=== PATIENT | female | born 1980 | race Caucasian/White ===

== ENCOUNTER 2016-09-30 16:25 | Inpatient (IN) | payer OTHER ==
[2016-09-30 18:17] LABS: Basophils # (A) 0.1 k/uL (0-0.2); Basophils % (A) 1 %; CH 26.9; CHCM 32.2; Eosinophils # (A) 0.3 k/uL (0-0.7); Eosinophils % (A) 3 %; HCT 43.2 % (34.0-46.0); HDW 2.84; HGB 13.7 gm/dL (11.4-16.0); Luc # (Auto) 0.27; Luc % (Auto) 3; Lymphocytes # (A) 2.7 k/uL (1.0-4.8); Lymphocytes % (A) 32 %; MCH 26.6 pg (25.0-35.0); MCHC 31.6 g/dL (31.0-37.0); MCV 84.2 fL (80.0-100.0); Monocytes # (A) 0.4 k/uL (0-1.0); Monocytes % (A) 5 %; Neutrophils # (A) 4.7 k/uL (1.3-7.7); Neutrophils % (A) 56 %; RBC 5.13 m/uL (3.80-5.40); RDW 14.2 % (11.5-15.5); WBC 8.5 k/uL (3.8-10.6)
[2016-09-30 18:19] LABS: Appearance,Urine Clear (Clear); Bacteria,Urine Rare /hpf; Bilirubin,Urine Negative (Negative); Glucose,Urine (UA) Negative (Negative); Ketones,Urine Negative (Negative); Leukocyte Esterase,Urine Small (Negative); Mucus,Urine Rare /hpf; Nitrite,Urine Negative (Negative); Particle Count 1566; Protein,Urine Negative (Negative); RBC,Urine 1 /hpf (0-5); Squamous Epithelial Cell,Urine 1 /hpf (0-4); UA Billing (MACRO vs. MICRO) MICRO; Urobilinogen,Urine <2.0 mg/dL (<2.0); WBC,Urine 5 /hpf (0-5)
[2016-09-30 18:27] LABS: ALT 41 U/L (9-52); AST 24 U/L (14-36); Alkaline Phosphatase 72 U/L (38-126); Anion Gap 10 mmol/L; Blood Urea Nitrogen 15 mg/dL (7-17); Calcium 9.3 mg/dL (8.4-10.2); Carbon Dioxide 25 mmol/L (22-30); Chloride 107 mmol/L (98-107); Glucose 112 mg/dL (74-99); Non-African American GFR(MDRD) >60 (>60 ml/min/1.73 sqM); Potassium 4.1 mmol/L (3.5-5.1); Sodium 142 mmol/L (137-145); Total Bilirubin 0.4 mg/dL (0.2-1.3); Total Protein 7.3 g/dL (6.3-8.2)
--- NOTE | 2016-09-30 18:47 | CT ---
EXAMINATION TYPE: CT thor lumbar spine wo con DATE OF EXAM: 09/30/2016 6:40 PM COMPARISON: NONE HISTORY: Lower body and leg numbness CT DLP: 1898.5 mGycm Automated exposure control for dose reduction was used. CT scan of the thoracic and lumbar spine are performed without contrast. FINDINGS: The thoracolumbar spine shows satisfactory alignment without evidence of acute fracture or dislocatio n. Vertebral body heights are fairly well-maintained. There is prominent posterior rim calcified disc herniation effacing anterior thecal sac at L3-L4 level on sagittal image 30. There is prominent ante rior spurring from T8 through T10 levels. There is additional right lateral spurring below this on co sohan images. Well-corticated defect possible old avulsion fracture or limbus vertebra L4 anterior arriaga perior vertebral body level is noted. Small posterior disc herniations are noted L4-L5 and L5-S1 leve ls. Review of axial images confirms most prominent spinal canal effacement due to posterior disc herniati on L3-L4 level on axial image 77. There is mild facet arthropathy bilaterally at this level. Axial images at L4-L5 level show mild to moderate facet degenerative changes bilaterally with central disc protrusion. Axial images at L5-S1 level show mild/moderate facet degenerative changes bilaterally. Liver is diffusely low dense consistent with fatty infiltration. IMPRESSION: MULTILEVEL DEGENERATIVE CHANGES IN THE THORACOLUMBAR SPINE MOST PROMINENT L3-L4 LEVEL DETAILED ABO VE. CONSIDER NONEMERGENT MRI CORRELATION.
--- NOTE | 2016-09-30 18:55 | ED ---
General Adult HPI - General Chief complaint: Extremity Problem,Nontraumatic Stated complaint: Numbness/Lower extremities Time Seen by Provider: 09/30/16 17:24 Source: patient Mode of arrival: ambulatory - History of Present Illness Initial comments: 35-year-old female presents with some numbness from the upper abdomen down to the knees. His been going on for 2 days no associated weakness no difficulty walking no loss of bowel or bladder control has not had any episodes like this before no history of MS. Has had some dyspnea problems minor in the past. No loss of vision no double vision. No serious health problems except for mild diabetes for which she is on metformin but her last A1c was in the findings. - Related Data Home Medications Medication Instructions Recorded Confirmed Levothyroxine Sodium [Synthroid] 100 mcg PO QAM 08/24/16 09/30/16 Levothyroxine Sodium [Synthroid] 125 mcg PO QAM 08/24/16 09/30/16 Pantoprazole Sodium [Protonix] 40 mg PO QAM 08/24/16 09/30/16 metFORMIN HCL ER [Glucophage Xr] 500 mg PO PC-BRKFST 08/24/16 09/30/16 L.acidoph,Paracasei, B.lactis 1 cap PO DAILY 09/30/16 09/30/16 [Probiotic] Multivitamins, Thera [Multivitamin] 1 tab PO DAILY 09/30/16 09/30/16 Sucralfate [Carafate] 1 gm PO BID 09/30/16 09/30/16 Vitamin B Complex Oral Drops 7 - 8 drop SL DAILY 09/30/16 09/30/16 Allergies Allergy/AdvReac Type Severity Reaction Status Date / Time No Known Allergies Allergy Verified 09/30/16 17:50 Review of Systems ROS Statement: Those systems with pertinent positive or pertinent negative responses have been documented in the HPI. ROS Other: All systems not noted in ROS Statement are negative. Constitutional: Denies: fever, chills ENT: Denies: ear pain, throat pain Respiratory: Denies: cough Cardiovascular: Denies: chest pain Gastrointestinal: Denies: abdominal pain, nausea, vomiting Genitourinary: Denies: urgency, frequency Skin: Denies: rash Neurological: Reports: paresthesias. Denies: headache Psychiatric: Denies: anxiety, depression Hematological/Lymphatic: Denies: easy bleeding, easy bruising Past Medical History Past Medical History: Diabetes Mellitus, GERD/Reflux, Liver Disease, Sleep Apnea /CPAP/BIPAP, Thyroid Disorder Additional Past Medical History / Comment(s): Uses CPAP.Hx Sarcoidosis with "swollen lymphnodes to lungs" & causes swelling to legs, reports minimal symptoms. History of Any Multi-Drug Resistant Organisms: None Reported Past Surgical History: Cholecystectomy, Tonsillectomy, Tubal Ligation Past Anesthesia/Blood Transfusion Reactions: No Reported Reaction Past Psychological History: No Psychological Hx Reported Smoking Status: Never smoker Past Alcohol Use History: None Reported Past Drug Use History: None Reported - Past Family History Mother Family Medical History: No Reported History General Exam Limitations: no limitations General appearance: alert Head exam: Present: atraumatic Eye exam: Present: normal appearance, PERRL, EOMI ENT exam: Present: normal oropharynx, mucous membranes moist Respiratory exam: Present: normal lung sounds bilaterally Cardiovascular Exam: Present: regular rate, normal heart sounds GI/Abdominal exam: Present: soft. Absent: tenderness External exam: Present: normal external exam Neurological exam: Present: alert, CN II-XII intact Psychiatric exam: Present: normal affect Skin exam: Present: warm, dry Course Vital Signs 09/30/16 09/30/16 17:07 19:20 Temperature 97.8 F Pulse Rate 74 69 Respiratory 18 18 Rate Blood Pressure 123/87 136/73 O2 Sat by Pulse 98 97 Oximetry Medical Decision Making - Medical Decision Making Spoke with Dr. Pastrana onset of paresthesias suggests of transverse myelitis versus MS advised to admit MRIs in the morning neuro checks and will be admitted to Dr. Molina spoke to his nurse practitioner. - Lab Data Result diagrams: 09/30/16 18:00 09/30/16 18:00 Lab Results 09/30/16 09/30/16 09/30/16 Range/Units 18:00 18:00 18:00 WBC 8.5 (3.8-10.6) k/uL RBC 5.13 (3.80-5.40) m/uL Hgb 13.7 (11.4-16.0) gm/dL Hct 43.2 (34.0-46.0) % MCV 84.2 (80.0-100.0) fL MCH 26.6 (25.0-35.0) pg MCHC 31.6 (31.0-37.0) g/dL RDW 14.2 (11.5-15.5) % Plt Count 237 (150-450) k/uL Neutrophils % 56 % Lymphocytes % 32 % Monocytes % 5 % Eosinophils % 3 % Basophils % 1 % Neutrophils # 4.7 (1.3-7.7) k/uL Lymphocytes # 2.7 (1.0-4.8) k/uL Monocytes # 0.4 (0-1.0) k/uL Eosinophils # 0.3 (0-0.7) k/uL Basophils # 0.1 (0-0.2) k/uL Sodium 142 (137-145) mmol/L Potassium 4.1 (3.5-5.1) mmol/L Chloride 107 (98-107) mmol/L Carbon Dioxide 25 (22-30) mmol/L Anion Gap 10 mmol/L BUN 15 (7-17) mg/dL Creatinine 0.68 (0.52-1.04) mg/dL Est GFR (MDRD) Af Amer >60 (>60 ml/min/1.73 sqM) Est GFR (MDRD) Non-Af >60 (>60 ml/min/1.73 sqM) Glucose 112 H (74-99) mg/dL Calcium 9.3 (8.4-10.2) mg/dL Total Bilirubin 0.4 (0.2-1.3) mg/dL AST 24 (14-36) U/L ALT 41 (9-52) U/L Alkaline Phosphatase 72 (38-126) U/L Total Protein 7.3 (6.3-8.2) g/dL Albumin 4.1 (3.5-5.0) g/dL Urine Color Yellow Urine Appearance Clear (Clear) Urine pH 6.0 (5.0-8.0) Ur Specific [place] 1.020 (1.001-1.035) Urine Protein Negative (Negative) Urine Glucose (UA) Negative (Negative) Urine Ketones Negative (Negative) Urine Blood Negative (Negative) Urine Nitrate Negative (Negative) Urine Bilirubin Negative (Negative) Urine Urobilinogen <2.0 (<2.0) mg/dL Ur Leukocyte Esterase Small H (Negative) Urine RBC 1 (0-5) /hpf Urine WBC 5 (0-5) /hpf Ur Squamous Epith Cells 1 (0-4) /hpf Urine Bacteria Rare H (None) /hpf Urine Mucus Rare H (None) /hpf - Radiology Data Radiology results: report reviewed Thoracic and lumbar CT shows multilevel degenerative changes most marked at the L3 4 level and L4-L5 level which does not correlate with her findings. Disposition Clinical Impression: Transverse myelitis Disposition: ADMITTED IP TO THIS HOSP Condition: Good Time of Disposition: 19:48
--- NOTE | 2016-09-30 19:21 | XR ---
EXAMINATION TYPE: XR chest 2V DATE OF EXAM: 09/30/2016 7:01 PM COMPARISON: NONE HISTORY: Lower leg numbness. Altered mental status TECHNIQUE: Frontal and lateral views of the chest are obtained. FINDINGS: Somewhat low lung volumes are present. There is no focal air space opacity, pleural effusi on, or pneumothorax seen. The cardiac silhouette size is mildly enlarged. The osseous structures a re intact. Cholecystectomy clips are noted on lateral view. IMPRESSION: Mild cardiomegaly without acute pulmonary process.
[2016-09-30] MEDS ORDERED: NALOXONE 0.4 MG/ML 1 ML VIAL IV PRN (19:48)
[2016-09-30 22:16] VITALS: BMI 43.9
[2016-10-01 07:06] LABS: Glucose,Whole Blood 109 mg/dL (75-99)
--- NOTE | 2016-10-01 09:00 | P.CNNES ---
History of Present Illness Consult date: 10/01/16 Reason for Consult: Patient with paresthesias from the waist to the legs. History of Present Illness: This patient is a 35-year-old right-handed white female who was in her usual state of health until of this last week. Patient states she woke and noticed that she was having numbness from the waist down to her feet. Initially she felt this was due to her sitting for an extended period of time and putting pressure onto her gluteal area. Apparently the symptoms persisted and seemed to extend from the umbilical area into the pelvic and down the legs. This continued for 2 more days. Her mother was concerned and told her it would be best for her to come to the emergency room yesterday for further evaluation. She did not experience any pain in the legs. She denied any weakness in the legs. She did not have any bowel or bladder incontinence. The symptoms persisted even this morning but seemed to have eased up somewhat in the feet. She denies any recent pelvic surgery or any other pelvic disorder in the past. She has been able to ambulate and denies any weakness in the legs. The patient mentioned she was diagnosed with sarcoidosis several years ago. She has not had any major flare up of this condition. She also has a known history of diabetes mellitus and apparently her blood sugars have been under very good control. Her last hemoglobin A1c was 6.2. Due to the persistence of her symptoms a patient was seen in the emergency room yesterday by Dr. Burns It was recommended she be admitted for full evaluation of the spine. She did undergo a computed tomography scan of the lumbar spine which revealed some disc changes at L4-L5 level. The patient has not had any other major medical issue over the last several years. She is now been admitted and neurology has been consulted for further evaluation and recommendations. Review of Systems Constitutional: Denies chills, Denies fever Eyes: denies blurred vision, denies pain Ears, nose, mouth and throat: Denies headache, Denies sore throat Cardiovascular: Denies chest pain, Denies shortness of breath Respiratory: Denies cough Gastrointestinal: Denies abdominal pain, Denies diarrhea, Denies nausea, Denies vomiting Genitourinary: Denies dysuria, Denies hematuria Musculoskeletal: Denies myalgias Integumentary: Denies pruritus, Denies rash Neurological: Reports paresthesias, Reports sensory deficit, Denies numbness, Denies weakness Psychiatric: Denies anxiety, Denies depression Endocrine: Denies fatigue, Denies weight change Past Medical History Past Medical History: Diabetes Mellitus, GERD/Reflux, Liver Disease, Sleep Apnea /CPAP/BIPAP, Thyroid Disorder Additional Past Medical History / Comment(s): Uses CPAP.Hx Sarcoidosis with "swollen lymphnodes to lungs" & causes swelling to legs, reports minimal symptoms. History of Any Multi-Drug Resistant Organisms: None Reported Past Surgical History: Cholecystectomy, Tonsillectomy, Tubal Ligation Past Anesthesia/Blood Transfusion Reactions: No Reported Reaction Past Psychological History: No Psychological Hx Reported Smoking Status: Never smoker Past Alcohol Use History: None Reported Past Drug Use History: None Reported - Past Family History Mother Family Medical History: No Reported History Medications and Allergies Home Medications Medication Instructions Recorded Confirmed Type Levothyroxine Sodium [Synthroid] 100 mcg PO QAM 08/24/16 09/30/16 History Levothyroxine Sodium [Synthroid] 125 mcg PO QAM 08/24/16 09/30/16 History Pantoprazole Sodium [Protonix] 40 mg PO QAM 08/24/16 09/30/16 History metFORMIN HCL ER [Glucophage Xr] 500 mg PO PC-BRKFST 08/24/16 09/30/16 History L.acidoph,Paracasei, B.lactis 1 cap PO DAILY 09/30/16 09/30/16 History [Probiotic] Multivitamins, Thera [Multivitamin] 1 tab PO DAILY 09/30/16 09/30/16 History Sucralfate [Carafate] 1 gm PO BID 09/30/16 09/30/16 History Vitamin B Complex Oral Drops 7 - 8 drop SL DAILY 09/30/16 09/30/16 History Allergies Allergy/AdvReac Type Severity Reaction Status Date / Time No Known Allergies Allergy Verified 09/30/16 17:50 Physical Examination - Vital Signs Vital Signs: Vital Signs Temp Pulse Pulse Resp BP BP Pulse Ox 10/01/16 02:49 97.1 F L 69 16 111/73 96 09/30/16 21:57 97.6 F 69 16 100/65 95 09/30/16 20:41 69 18 124/66 97 Intake and Output 09/30/16 10/01/16 10/01/16 22:59 06:59 14:59 Intake Total 300 200 Balance 300 200 Intake: Oral 300 200 Other: Voiding Method Toilet Weight 131.088 kg - Constitutional General appearance: average body habitus, cooperative - EENT EENT: mucous membranes moist - Respiratory Respiratory: lungs clear, normal breath sounds - Cardiovascular Cardiovascular: regular rate, normal S1, normal S2 Extremities: no peripheral edema bilaterally - Gastrointestinal Gastrointestinal: normoactive bowel sounds - Integumentary Integumentary: normal - Neurologic Cranial nerve examination: PERRL, EOMI, VFF, V1/V2/V3 grossly intact, face symmetric, tongue midline, intact gag reflex, intact corneal reflex, normal palatal elevation Speech examination: intact Sensorimotor examination: intact Detailed motor examination: grossly full strength in all extremities Motor examination - right side: 5/5: biceps, triceps, wrist flexion, wrist extension, polygraph examiner, hip flexors, knee extensors, dorsiflexion, toe extension (EHL) , plantarflexion Motor examination - left side: 5/5: biceps, triceps, wrist flexion, wrist extension, polygraph examiner, hip flexors, knee extensors, dorsiflexion, toe extension (EHL) , plantarflexion Detailed sensory examination: intact Reflex and gait examination: intact Reflexes: 1+: ankle, bicep, knee, tricep - Musculoskeletal Musculoskeletal: no pain - Psychiatric Psychiatric: mood/affect appropriate, cooperative Results - Laboratory Findings CBC and BMP: 09/30/16 18:00 09/30/16 18:00 Abnormal Lab Findings: Abnormal Labs 10/01/16 06:55 POC Glucose (mg/dL) 109 H Assessment and Plan (1) Paresthesias Status: Acute Code(s): R20.2 - PARESTHESIA OF SKIN (2) Sarcoidosis Status: Acute Code(s): D86.9 - SARCOIDOSIS, UNSPECIFIED (3) Transverse myelitis Status: Acute Code(s): G37.3 - ACUTE TRANSVERSE MYELITIS IN DEMYELINATING DISEASE OF CNSL Plan: This patient is a 35-year-old female who experienced sudden onset of paresthesias extending from the umbilical area down into the pelvis and into her feet. The symptoms began on . There's been only slight improvement with his symptoms today. She has a history of sarcoidosis and has not required any specific treatment over the years. Due to the onset of her symptoms coming on suddenly she was admitted to the hospital for further evaluation. Computed tomography scan of the lumbar spine revealed some degenerative changes in the lumbar region. We have recommended she undergo a complete spinal MRI study to rule out demyelinating disease such as MS as well as possibility of transverse myelitis. Patient is scheduled to undergo MRI imaging of the spine today for further assessment. Patient denies any weakness and reflexes are symmetric with no evidence of hyperreflexia. She does have history of diabetes mellitus with very good control of blood sugars. Depending on her MRI results further recommendations will be given. Her overall prognosis at this time remains guarded. Time with Patient: Greater than 30
[2016-10-01 11:44] LABS: Glucose,Whole Blood 105 mg/dL (75-99)
[2016-10-01] MEDS: INSULIN LISPRO (humaLOG) 300 UNIT/3 ML VIAL SQ SCH ×3 (13:03→20:40)
[2016-10-01] MEDS: PANTOPRAZOLE 40 MG TABLET PO SCH (13:07)
[2016-10-01] MEDS: MULTIVITAMINS, THERA 1 EACH TAB PO SCH (13:07)
[2016-10-01] MEDS: LEVOTHYROXINE 125 MCG TAB PO SCH (13:07)
[2016-10-01] MEDS: LEVOTHYROXINE 100 MCG TAB PO SCH (13:07)
[2016-10-01] MEDS: SUCRALFATE 1 GM TAB PO SCH ×2 (13:08→13:09)
[2016-10-01 14:02] LABS: Hemoglobin A1C 5.8 % (4.2-6.1)
--- NOTE | 2016-10-01 16:39 | MR ---
EXAMINATION TYPE: MR tspine/lspine wo/w con DATE OF EXAM: 10/01/2016 3:10 PM COMPARISON: NONE HISTORY: Transverse Myletis vs MS CONTRAST: Performed utilizing 20 mL intravenous MultiHance gadolinium contrast. TECHNIQUE: Multiplanar, multiecho imaging on a 3.0 Marianela magnet is performed through the thoracic spi ne. Spinal cord maintains normal signal through its visualized course. Vertebral body alignment is normal. Vertebral body heights are preserved. Disc heights are preserved. Disc hydration levels are preserved. At T6-7 there is left paracentral thecal sac compression from disc material. No spinal canal stenosis is present. Neural foramen are patent. At T5-6 there is a central and right paracentral minimal endplate bulge with anterior thecal sac cont act. No AP spinal canal stenosis or cord contact is evident. T1-T2: There is mild right paracentral endplate spurring with mild anterior thecal sac compression. N o spinal canal stenosis is present. Cord contact may be present. No abnormal enhancement is evident. Spinal cord maintains normal signal and caliber. No T2 hyperinten sities are identified IMPRESSIONS: 1. Chronic appearing endplate changes with mild to moderate anterior thecal sac compression discussed above. Cord contact may be present at T1-T2. No cord deformity or spinal canal stenosis is present. 2. No suspicious changes for transverse myelitis or multiple sclerosis. EXAMINATION TYPE: MR tspine/lspine wo/w con DATE OF EXAM: 10/01/2016 3:10 PM COMPARISON: NONE HISTORY: Transverse Myletis vs MS CONTRAST: 20 mL intravenous MultiHance. TECHNIQUE: Multiplanar, multisequence images of the lumbar spine were acquired. FINDINGS: L5-S1: No significant disc bulge or disc herniation. No spinal canal stenosis. No foraminal stenosi s. Neural foramen are patent.. L4-L5: No significant disc bulge or disc herniation. No spinal canal stenosis. No foraminal stenosi s. Neural foramen are patent.. L3-L4: There is a large central disc herniation with moderate to prominent central thecal sac neelam gina. No AP spinal canal stenosis is present. No foraminal narrowing is present. Facet hypertrophy is present. . L2-L3: No significant disc bulge or disc herniation. No spinal canal stenosis. No foraminal stenosi s. . L1-L2: No significant disc bulge or disc herniation. No spinal canal stenosis. No foraminal stenosi s. . T12-L1: No significant disc bulge or disc herniation. No spinal canal stenosis. No foraminal stenos is. . No abnormal enhancement. IMPRESSION: 1. Large central disc herniation L3 L4 with moderate anterior thecal sac compression. 2. No changes suspicious for transverse myelitis or multiple sclerosis.
[2016-10-01 16:51] LABS: Glucose,Whole Blood 95 mg/dL (75-99)
[2016-10-01] MEDS: CARAFATE 1 GM/10 ML PO SCH (18:36)
[2016-10-01] MEDS: metFORMIN 500 MG TAB PO SCH (18:37)
--- NOTE | 2016-10-01 19:45 | HP ---
DATE OF ADMISSION: 09/30/2016 DATE OF SERVICE: 10/01/2016 CHIEF COMPLAINT: Numbness of both legs. HISTORY OF PRESENT ILLNESS: This 35-year-old woman with a past medical history of multiple medical problems, including diabetes mellitus, GERD, history of liver disease, sleep apnea, history of hypothyroidism, history of sarcoidosis, history of CPAP, history of lymphadenopathy and mediastinal biopsy, being followed by Dr. Bland in the outpatient setting, was complaining of numbness of both legs for the last 2 weeks; the patient is unable to feel much of it; almost like after an epidural injection, according to her. The numbness worsened yesterday from the day before, but apparently since then it stabilized. The numbness is felt below the umbilical area. There is no history of any fever, rigor or chills, no history of associated weakness, no history of any bladder or bowel dysfunction or any abnormalities at this time. There is no chest pain, palpitation, hemoptysis, hematemesis or melena. Dr. Pastrana's evaluation is in progress at this time from neurology point of view. PAST MEDICAL HISTORY: 1. History of diabetes mellitus, type 2. 2. History of GERD. 3. History of liver disease. 4. Sleep apnea. 5. Hypothyroidism. 6. History of sarcoidosis. 7. Cholecystectomy. 8. Tonsillectomy. Medications prior to admission include: 1. Metformin 500 mg p.o. at breakfast. 2. Vitamin B complex. 3. Carafate 1 gram b.i.d. 4. Protonix 40 mg p.o. in the morning. 5. Multivitamins 1 p.o. daily. 6. Synthroid 225 mcg p.o. daily. 7. Probiotic 1 p.o. daily. ALLERGIES: NONE. FAMILY HISTORY: No history of heart disease or strokes in the family. SOCIAL HISTORY: No history of smoking. No history of alcohol intake. REVIEW OF SYSTEMS: ENT: No diminished hearing. No diminished vision. CARDIOVASCULAR: No angina, palpitation. RESPIRATORY SYSTEM: No cough, hemoptysis. GI: No nausea, vomiting. : No dysuria. NERVOUS SYSTEM: As mentioned earlier. ALLERGY/IMMUNOLOGY: No asthma, hayfever. MUSCULOSKELETAL: As mentioned earlier. HEMATOLOGY/ONCOLOGY: No history of anemia. ENDOCRINE: As mentioned earlier. CONSTITUTIONAL: As mentioned earlier. DERMATOLOGY: Negative. RHEUMATOLOGY: Negative. PSYCHIATRY: Negative. PHYSICAL EXAMINATION: Patient is alert and oriented x3. Pulse is 56. Blood pressure is 95/50, respiration 16, temperature 96.8. Pulse ox 97% on room air. HEENT: Conjunctivae normal. Oral mucosa moist. NECK: No jugular venous distention. No carotid bruit. No lymph node enlargement. CARDIOVASCULAR: S1, S2, muffled. No S3. No S4. RESPIRATORY: Breath sounds diminished at the bases. No rhonchi. No crackles. No bronchial breath sounds. ABDOMEN: Soft, obese, nontender. No mass palpable. LEGS: No edema. No swelling. NERVOUS SYSTEM: Higher functions as mentioned earlier. Cranial nerves 2-12 grossly intact. No facial deviation. Power is normal in the upper limbs. Power is also normal in the lower limbs. Reflexes are diminished. Sensations are significantly diminished below the T10 bilaterally. Plantar reflexes are equivocal. JOINTS: No active deforming arthropathy. LYMPHATICS: No lymph node palpable in neck, axilla or groin. SKIN: No ulcer, rash, bleeding. LABS AT THIS TIME: CBC within normal limits. Glucose 112. C-reactive protein is 14.5. UA shows 5 WBCs. ASSESSMENT: 1. Numbness of both lower limbs; rule out transverse myelitis. 2. Increased random blood sugar and diabetes mellitus, type 2. 3. Increased CRP. 4. Rule out urinary tract infection. 5. Gastroesophageal reflux disease. 6. History of liver disease. 7. History of sleep apnea, on CPAP. 8. History of sarcoidosis. 9. Hypothyroidism. 10. History of mediastinal biopsy with lymphadenopathy. 11. History of cholecystectomy. 12. History of tubal ligation. 13. History of obesity with a body mass index of 43.9. 14. FULL CODE. RECOMMENDATIONS AND DISCUSSION: In this 35-year-old woman who presented with multiple complex medical issues, we will monitor the patient closely, continue the current medications, continue symptomatic treatment, resume the home medications, DVT prophylaxis. Protonix. I would also recommend MRI of the thoracolumbar spine as well as the brain. Otherwise, monitor blood sugars closely. Prognosis guarded because of multiple complex medical issues. Discussed with the patient, who understands and agrees. Further recommendations to follow. A copy of this dictation is being forwarded to Dr. Bland, who is the primary physician.
[2016-10-01 20:47] LABS: Glucose,Whole Blood 115 mg/dL (75-99)
[2016-10-02] MEDS: LEVOTHYROXINE 125 MCG TAB PO SCH (05:09)
[2016-10-02] MEDS: LEVOTHYROXINE 100 MCG TAB PO SCH (05:09)
[2016-10-02 06:55] LABS: Glucose,Whole Blood 107 mg/dL (75-99)
[2016-10-02 07:12] LABS: Basophils % (A) 1 %; CH 26.7; CHCM 31.8; Eosinophils # (A) 0.2 k/uL (0-0.7); Eosinophils % (A) 3 %; HCT 43.6 % (34.0-46.0); HDW 2.85; HGB 13.5 gm/dL (11.4-16.0); Hypochromasia Slight; Luc # (Auto) 0.25; Luc % (Auto) 3; Lymphocytes # (A) 2.1 k/uL (1.0-4.8); Lymphocytes % (A) 26 %; MCH 26.1 pg (25.0-35.0); MCHC 30.9 g/dL (31.0-37.0); MCV 84.3 fL (80.0-100.0); Mean Platelet Volume 8.3; Monocytes # (A) 0.4 k/uL (0-1.0); Monocytes % (A) 5 %; Neutrophils # (A) 5.1 k/uL (1.3-7.7); Neutrophils % (A) 63 %; RBC 5.17 m/uL (3.80-5.40); RDW 14.1 % (11.5-15.5); WBC 8.1 k/uL (3.8-10.6); WBC (Perox) 7.83
[2016-10-02 07:29] LABS: Anion Gap 9 mmol/L; Blood Urea Nitrogen 10 mg/dL (7-17); Calcium 9.3 mg/dL (8.4-10.2); Carbon Dioxide 26 mmol/L (22-30); Chloride 105 mmol/L (98-107); Glucose 113 mg/dL (74-99); Non-African American GFR(MDRD) >60 (>60 ml/min/1.73 sqM); Potassium 4.3 mmol/L (3.5-5.1); Sodium 140 mmol/L (137-145)
[2016-10-02] MEDS: PANTOPRAZOLE 40 MG TABLET PO SCH (07:46)
[2016-10-02] MEDS: MULTIVITAMINS, THERA 1 EACH TAB PO SCH (07:46)
[2016-10-02] MEDS: metFORMIN 500 MG TAB PO SCH ×2 (07:46→17:18)
[2016-10-02] MEDS: INSULIN LISPRO (humaLOG) 300 UNIT/3 ML VIAL SQ SCH ×4 (07:48→20:41)
[2016-10-02] MEDS: LACTOBACILLUS ACIDOPH & BULGAR 1 EACH PACKET PO SCH (07:48)
[2016-10-02] MEDS: CARAFATE 1 GM/10 ML PO SCH ×2 (07:48→17:19)
--- NOTE | 2016-10-02 08:59 | P.CNOR ---
History of Present Illness - [facility] Consult date: 10/02/16 Requesting physician: Joseph Pastrana Consult reason: other (Paresthesia of the mid abdomen distally down the bilateral lower extremities) History of present illness: Patient is a very pleasant 35-year-old female who is seen and examined at the bedside after we were consulted for further evaluation for numbness and tingling extending from the mid abdomen down the bilateral lower extremities. Patient states her symptoms started almost a week ago without injuries. She states her symptoms feel like when she had an epidural injection at the time of having her children. She has numbness and tingling with decreased sensation from the mid abdomen radiating down the thighs and down the bilateral lower extremities to the ankles. She has had some numbness to the right foot as well. She states her symptoms are symmetrical with some increased numbness on the right below the knee. She denies any lower extremity weakness bilaterally. She states she has been able to continue participating regular activities of daily living without significant difficulty. She states over this past weekend she was able to addance and was also able to participate in [place] without significant difficulty. She's been eating and voiding without difficulty. She denies loss of bowel or bladder. She was seen and examined by Dr. Pastrana and neurology yesterday. Previously a thoracic and lumbar spine CT was taken on 06/2017. Dr. Pastrana ordered an MRI of the thoracic and lumbar spine with and without contrast which was performed yesterday. He wanted to further evaluate the patient for the possibility of transverse myelitis or multiple sclerosis. Patient states her symptoms were not significantly alarming but her mother advised her to seek further evaluation after her symptoms have been persisting for days. Patient is not currently experiencing significant low back pain. Past Medical History Past Medical History: Diabetes Mellitus, GERD/Reflux, Liver Disease, Sleep Apnea /CPAP/BIPAP, Thyroid Disorder Additional Past Medical History / Comment(s): Uses CPAP.Hx Sarcoidosis with "swollen lymphnodes to lungs" & causes swelling to legs, reports minimal symptoms. History of Any Multi-Drug Resistant Organisms: None Reported Past Surgical History: Cholecystectomy, Tonsillectomy, Tubal Ligation Past Anesthesia/Blood Transfusion Reactions: No Reported Reaction Past Psychological History: No Psychological Hx Reported Smoking Status: Never smoker Past Alcohol Use History: None Reported Past Drug Use History: None Reported - Past Family History Mother Family Medical History: No Reported History Medications and Allergies Home Medications Medication Instructions Recorded Confirmed Type Levothyroxine Sodium [Synthroid] 100 mcg PO QAM 08/24/16 09/30/16 History Levothyroxine Sodium [Synthroid] 125 mcg PO QAM 08/24/16 09/30/16 History Pantoprazole Sodium [Protonix] 40 mg PO QAM 08/24/16 09/30/16 History metFORMIN HCL ER [Glucophage Xr] 500 mg PO PC-BRKFST 08/24/16 09/30/16 History L.acidoph,Paracasei, B.lactis 1 cap PO DAILY 09/30/16 09/30/16 History [Probiotic] Multivitamins, Thera [Multivitamin] 1 tab PO DAILY 09/30/16 09/30/16 History Sucralfate [Carafate] 1 gm PO BID 09/30/16 09/30/16 History Vitamin B Complex Oral Drops 7 - 8 drop SL DAILY 09/30/16 09/30/16 History Allergies Allergy/AdvReac Type Severity Reaction Status Date / Time No Known Allergies Allergy Verified 09/30/16 17:50 Physical Examination Physical exam: Patient is awake, alert, and oriented 3 Vital signs stable Good chest excursion with deep inspiration and expiration Abdomen soft nontender Examination of lumbar spine reveals skin is intact with no abrasions, lacerations, or bruises; no erythema, purulence or signs of infection Patient has reduced sensation from the mid abdomen down the bilateral lower extremities with palpation Dorsiflexion, plantarflexion, and extensor hallucis longus positive sustained bilaterally Lower extremity strength 5/5 bilaterally No lower extremity hyperreflexia bilaterally Straight leg test negative bilateral lower extremities Negative Lasegue's test bilaterally No signs or symptoms of DVT; no calf pain No pain with internal and external rotation of the hips bilaterally Neurovascularly intact Results Pertinent studies: MRI of the thoracic spine with and without contrast: T1-2 mild right paracentral endplate spurring with mild anterior thecal sac compression; T5-6 central and right paracentral minimal endplate bulge with anterior thecal sac contact; T6-7 left paracentral thecal sac compression from disc material; no evidence of significant canal stenosis or foraminal stenosis throughout the thoracic spine; overall alignment of the thoracic spine appears to be adequately maintained; intravertebral disc heights appear to be adequately maintained; no evidence of vertebral body compression fracture; no suspicious changes for transverse myelitis or multiple sclerosis MRI of the lumbar spine with and without contrast: L3-4 large central disc herniation with moderate to prominent central thecal sac compression with no central canal stenosis present along with facet hypertrophy; overall alignment of the lumbar spine appears to be adequately maintained; no evidence of vertebral body compression fracture; no changes suspicious for transverse myelitis or multiple sclerosis CT of the thoracic spine and lumbar spine: Multilevel degenerative changes in the thoracolumbar spine most prominent L3-4; consider nonemergent MRI correlation - Labs Labs: Abnormal Lab Results - Last 24 Hours (Table) 10/01/16 10/01/16 10/01/16 Range/Units 11:42 12:34 20:34 MCHC (31.0-37.0) g/dL Glucose (74-99) mg/dL POC Glucose (mg/dL) 105 H 115 H (75-99) mg/dL C-Reactive Protein 14.5 H (<10.0) mg/L 10/02/16 10/02/16 10/02/16 Range/Units 06:37 06:37 06:53 MCHC 30.9 L (31.0-37.0) g/dL Glucose 113 H (74-99) mg/dL POC Glucose (mg/dL) 107 H (75-99) mg/dL C-Reactive Protein (<10.0) mg/L H & H 10/02/16 Range/Units 06:37 Hgb 13.5 (11.4-16.0) gm/dL Hct 43.6 (34.0-46.0) % Result Diagrams: 10/02/16 06:37 10/02/16 06:37 Assessment and Plan (1) Herniated nucleus pulposus, L3-4 Status: Acute (2) Paresthesias Status: Acute Plan: Assessment: Paresthesia of the mid abdomen distally down the bilateral lower extremities L3-4 central disc herniation without evidence of central canal stenosis Plan: 1. I have reviewed the patient's imaging, most specifically her MRIs of the thoracic and lumbar spines, and have discussed these in detail with the patient. I will plan to have Dr. Cipriano Lang review these imagings as well for his evaluation. She does have evidence of a disc herniation at L3-4 without evidence of central canal stenosis. Her symptoms are very generalized and extended from the mid abdomen down the bilateral lower extremities. It does not appear that this disc herniation at L3-4 would be the significant cause of her symptoms. I would like to discuss this in further detail with Dr. Cipriano Lang. Upon doing so, we will determine a more definitive plan of care or other possible treatment options. Dr. Lang has put a consult in for Dr. Maddy Niño in pain management to further evaluate the patient. After further discussion with the patient regarding her symptoms and her imaging, I do not feel we are currently planning for acute surgical intervention in regards to her thoracic or lumbar spine. We discussed she may continue to ambulate as tolerated. 2. Dr. Pastrana in neurology to continue following the patient 3. Medicine to continue following patient 4. Patient currently waiting for evaluation by Dr. Peoples in pain management 5. I will discuss this patient in detail with Dr. Cipriano Lang and we will adjust our plan of care accordingly. Time with Patient: Greater than 30
--- NOTE | 2016-10-02 09:22 | ECHOF ---
Referral Reason:Cardiomegaly MEASUREMENTS -------- HEIGHT: 172.7 cm WEIGHT: 131.1 kg BP: 111/73 RVIDd: 2.8 cm (< 3.3) IVSd: 1.1 cm (0.6 - 1.1) LVIDd: 4.8 cm (3.9 - 5.3) LVPWd: 1.1 cm (0.6 - 1.1) IVSs: 1.4 cm LVIDs: 3.5 cm LVPWs: 1.3 cm LA Diam: 3.1 cm (2.7 - 3.8) LAESV Index (A-L): 20.79 ml/m Ao Diam: 3.4 cm (2.0 - 3.7) AV Cusp: 2.1 cm (1.5 - 2.6) LA Diam: 2.8 cm (2.7 - 3.8) MV EXCURSION: 14.577 mm (> 18.000) MV EF SLOPE: 92 mm/s (70 - 150) EPSS: 0.8 cm MV E Cam: 0.97 m/s MV DecT: 263 ms MV A Cam: 0.57 m/s MV E/A Ratio: 1.71 FINDINGS -------- Sinus rhythm. This was a technically difficult study with suboptimal views. There is borderline concentric left ventricular hypertrophy. Overall left ventricular systolic function is low-normal with, an EF between 50 - 55 %. The right ventricle is mildly enlarged. Normal LA size by volume 22+/-6 ml/m2. The right atrium is normal in size. 1.5mg of Definity was utilized for enhancement of images The aortic valve was not well visualized. Mild mitral annular calcification present. There is trace mitral regurgitation. Trace tricuspid regurgitation present. Pulmonic valve appears structurally normal. The aortic root size is normal. Normal inferior vena cava with normal inspiratory collapse consistent with estimated right atrial pressure of 5 mmHg. There is no pericardial effusion. CONCLUSIONS -------- 1. Sinus rhythm. 2. Mild mitral annular calcification present. 3. There is trace mitral regurgitation. 4. Trace tricuspid regurgitation present. 5. Pulmonic valve appears structurally normal. 6. The aortic root size is normal. 7. Normal inferior vena cava with normal inspiratory collapse consistent with estimated right atrial pressure of 5 mmHg. 8. There is no pericardial effusion. 9. This was a technically difficult study with suboptimal views. 10. There is borderline concentric left ventricular hypertrophy. 11. Overall left ventricular systolic function is low-normal with, an EF between 50 - 55 %. 12. The right ventricle is mildly enlarged. 13. Normal LA size by volume 22+/-6 ml/m2. 14. The right atrium is normal in size. 15. 1.5mg of Definity was utilized for enhancement of images 16. The aortic valve was not well visualized. SEWING MACHINE OPERATOR SEMIAUTOMATIC: Tejinder Sheppard RDCS
[2016-10-02 11:54] LABS: Glucose,Whole Blood 97 mg/dL (75-99)
--- NOTE | 2016-10-02 16:25 | MR ---
EXAMINATION TYPE: MR brain/cspine wo/w DATE OF EXAM: 10/02/2016 3:29 PM COMPARISON: NONE HISTORY: 35-year-old female Transverse Myelitis vs MS TECHNIQUE: Multiplanar, multisequence images of the brain and brainstem followed by the cervical spi ne were acquired before and after administration of 20 mL IV MultiHance. Diffusion weighted imaging is performed. MS protocol is utilized with the addition of a sagittal T2 FLAIR sequence of the brain and a sagittal PD sequence of the cervical spine. FINDINGS: BRAIN: No evidence for acute infarction, hemorrhage, mass, mass effect, midline shift, herniation, effacemen t of basal cisterns, or extra-axial fluid collection. The ventricles and sulci are age-appropriate. Major intracranial flow voids are intact. T2/FLAIR weighted sequences show a solitary 4 mm bright signal focus in the left posterior periatrial white matter. There is corresponding enhancement of this region. Otherwise, postcontrast images demonstrate no evidence of pathologic enhancement. Dural venous sinus es are patent. There is a partially empty sella. Otherwise, midline structures demonstrate normal morphology. The c raniocervical junction is normal. Mild mucosal thickening ethmoid air cells and inferior maxillary sinuses. Globes are intact. CERVICAL SPINE: No craniocervical junction abnormality, predental space widening, or prevertebral soft tissue swellin g. There is normal alignment of the cervical spine. No suspicious bone marrow placement. Variable mild intervertebral disc desiccation and small posterior disc bulges particularly at C4-C5 a nd C5-C6. There is mild multilevel facet degenerative changes also noted. At C2-C3, no spinal canal or foraminal stenosis. At C3-C4, there is mild facet degenerative change without spinal canal or foraminal stenosis. At C4-C5, mild facet degenerative change along with broad-based posterior disc bulge. This causes mil d spinal canal stenosis with abutment and slight ventral cord indentation. No significant neuroforami nal stenosis. At C5-C6, there is hypertrophic facet arthropathy and eccentric right-sided broad-based disc protrusi on. This mildly narrows the spinal canal and slightly abuts the right ventral cord. No neuroforaminal stenosis. At C6-C7, no spinal canal or neuroforaminal stenosis. At C7-T1 mild facet degenerative changes without canal or foraminal stenosis. There is artifact projecting over the cord on the sagittal T2 series. No discrete T2 cord signal abno rmality when correlated with the axial view. No suspicious enhancement within the spinal canal. No prevertebral or paravertebral soft tissue abnormality seen. There is some soft tissue prominence i n the left vallecular space probably reflecting lingual tonsillar hypertrophy. COMBINED IMPRESSION: BRAIN: 1. Solitary 4 mm bright focus within the left posterior periatrial white matter. This shows correspon ding enhancement. Findings are nonspecific but an area of active demyelination is not excluded. 2. Incidental partially empty sella. 3. Mild chronic ethmoid and maxillary sinus disease. CERVICAL SPINE: 1. Mild multilevel degenerative disc disease. Small posterior disc bulges at C4-C5 and C5-C6 cause mi ld narrowing of the spinal canal. At C4-C5, disc material abuts and slightly indents the ventral cord . 2. Additional scattered facet arthropathy particularly at these 2 levels. 3. No high-grade foraminal or canal compromise. 4. No discrete cord signal abnormality or abnormal cord enhancement.
--- NOTE | 2016-10-02 16:45 | PN ---
DATE OF SERVICE: 10/02/2016 This 35-year-old woman who was admitted with numbness of both legs is being closely monitored. Numbness is still persistent; slightly better. No motor weakness is noted. MRI showed L3-4 anterior thecal sac compression also. Multiple consultants are following the patient, including Orthopedic Spinal Surgery. Past medical history reviewed. REVIEW OF SYSTEMS: CARDIOVASCULAR SYSTEM: No angina, palpitations. RESPIRATORY SYSTEM: As mentioned earlier. GI: As mentioned earlier. : No dysuria. NERVOUS SYSTEM: As mentioned earlier Current medications are reviewed and include: 1. Humalog before meals and at bedtime. 2. Lactinex 1 daily. 3. Synthroid 100 mcg p.o. in the morning. 4. Synthroid 125 mcg p.o. in the morning. 5. Glucophage 250 mg before meals b.i.d. 6. Multivitamins. 7. Narcan. 8. Carafate. 9. Protonix. PHYSICAL EXAMINATION: Patient is alert and oriented x3. Pulse 60, blood pressure 129/79, respiration 16, temperature 97.2, pulse ox 96% on room air. HEENT: Conjunctivae normal. Oral mucosa moist. NECK: No jugular venous distention. No carotid bruit. No lymph node enlargement. CARDIOVASCULAR SYSTEM: S1, S2 muffled. No S3. No S4. RESPIRATORY SYSTEM: Breath sounds diminished at the bases. No rhonchi. No crackles. ABDOMEN: Soft, obese, nontender. LEGS: No edema. No swelling. NERVOUS SYSTEM: Some numbness and weakness sensation in both lower limbs up to the umbilicus. Otherwise no focal deficits. SKIN: No ulcer, rash, bleeding. LYMPHATICS: No lymph node palpable in neck, axilla or groin. LABS: CBC within normal limits. Accu-Cheks are noted. ASSESSMENT: 1. Numbness of both lower limbs. Rule out transverse myelitis or spinal cord lesion. 2. Increased random blood sugar with diabetes mellitus, type 2. 3. Increased CRP. 4. Rule out urinary tract infection. 5. Gastroesophageal reflux disease. 6. History of liver disease. 7. History of sleep apnea, CPAP. 8. History of sarcoidosis. 9. Hypothyroidism. 10. History of mediastinal lymphadenopathy and biopsy. 11. History of cholecystectomy. 12. History of tubal ligation. 13. History of obesity with body mass index of 43.9. 14. FULL CODE. RECOMMENDATIONS AND DISCUSSION: I recommend to continue with the current medications, continue with the monitoring, symptomatic treatment. Otherwise, monitor blood sugars closely. I would also recommend an MRI of the brain; lumbar puncture be considered by Dr. Pastrana. The Edwin level is normal. CRP is mildly elevated at 14.5. Sedimentation rate is only 18. Will continue to monitor. Prognosis guarded. Discussed with the patient, who understands. Further recommendations to follow.
[2016-10-02 17:00] LABS: Glucose,Whole Blood 121 mg/dL (75-99)
--- NOTE | 2016-10-02 18:21 | P.PN ---
Subjective This patient is a 35-year-old right-handed white female who is [facility] with bilateral paresthesias involving abdominal and lower extremities. She was admitted with provisional diagnosis of possible transverse myelitis. She underwent MRI of the lumbar and thoracic spine with and without contrast yesterday. Both of the studies came back negative for any evidence of demyelinating plaque lesions and also negative for transverse myelitis. Patient was sent for MRI of the brain and cervical spine today. Cervical spine feels reveal any cord signal abnormality. There was no abnormal cord enhancement. MRI of the brain reveals a solitary 4 mm left posterior parietal lobe lesion. Etiology is undetermined. Patient otherwise seems to be doing fairly well. She continues to have bilateral lower extremity paresthesia. She notices some more symptoms involving her right leg. She has been evaluated by orthopedic spine surgery. MRI studies were reviewed by orthopedic spine surgery and she does not require any acute surgical intervention at this time. She does have a herniated lumbar disc at L3-L4 level. We will await further recommendations from Dr. Lang in regarding these MRI results. We did discuss the results of the MRI of the brain today with the patient in detail. The location of the enhancing lesion is not typical for multiple sclerosis. However given her age and symptoms of paresthesias we are recommending that she have a lumbar puncture to rule out any possibility of multiple sclerosis. Patient is agreeable and we will arrange for anesthesia to perform LP tomorrow for further evaluation. Following this she may be discharged home as it will take 2 weeks to obtain final results on the spinal fluid analysis. Her overall prognosis at this time remains guarded. We will continue close neurological follow-up for this patient. Objective - Vital Signs Vital signs: Vital Signs Temp 97.2 F L 10/02/16 07:00 Pulse 60 10/02/16 07:00 Resp 16 10/02/16 07:00 BP 129/79 10/02/16 07:00 Pulse Ox 96 10/02/16 07:00 - Exam Physical examination: PHYSICAL EXAMINATION: Patient is resting comfortably in bed. VITAL SIGNS: Blood pressure is [129/79]. Heart rate is [60]. Respiration is [16] . Temperature is [97.2]. HEENT: Head is atraumatic, neck is supple, there were no carotid bruits. CHEST: Lungs are clear to auscultation and percussion. CARDIAC: S1, S2 normal rate and rhythm. There is no murmur. ABDOMEN: Soft and nontender. Bowel sounds are present. EXTREMITIES: There is no pedal edema. Peripheral pulses are present. Neurological examination: Patient has a nonfocal neurological examination at this time. - Labs CBC & Chem 7: 10/02/16 06:37 10/02/16 06:37 Labs: Abnormal Lab Results - Last 24 Hours (Table) 10/02/16 Range/Units 16:43 POC Glucose (mg/dL) 121 H (75-99) mg/dL Assessment and Plan (1) Paresthesias Status: Acute Code(s): R20.2 - PARESTHESIA OF SKIN (2) Sarcoidosis Status: Acute Code(s): D86.9 - SARCOIDOSIS, UNSPECIFIED (3) Transverse myelitis Status: Acute Code(s): G37.3 - ACUTE TRANSVERSE MYELITIS IN DEMYELINATING DISEASE OF CNSL Plan: This patient is a 35-year-old female who experienced sudden onset of paresthesias extending from the umbilical area down into the pelvis and into her feet. The symptoms began on . There's been only slight improvement with his symptoms today. She has a history of sarcoidosis and has not required any specific treatment over the years. Due to the onset of her symptoms coming on suddenly she was admitted to the hospital for further evaluation. Computed tomography scan of the lumbar spine revealed some degenerative changes in the lumbar region. We have recommended she undergo a complete spinal MRI study to rule out demyelinating disease such as MS as well as possibility of transverse myelitis. Patient is scheduled to undergo MRI imaging of the spine today for further assessment. Patient denies any weakness and reflexes are symmetric with no evidence of hyperreflexia. In fact her reflexes are hypoactive 1+. She does have history of diabetes mellitus with very good control of blood sugars. Depending on her MRI results further recommendations will be given. Patient underwent MRI of the brain and cervical spine today. Results are as noted above. MRI of the brain does reveal a 4 mm lesion in the left parietal lobe. Etiology is undetermined. We have recommended she undergo a lumbar puncture for further evaluation to rule out MS. Patient is agreeable and we will contact anesthesia to perform LP tomorrow for further evaluation. If she is stable she may be discharged home tomorrow and will need to follow-up for final results of the spinal fluid in 2 weeks. Case was discussed at length with the patient and her mother at bedside. All of their questions were answered. Her overall prognosis at this time remains guarded.
[2016-10-02] MEDS ORDERED: SODIUM CHLORIDE 0.9% 1,000 ML IV ONE ×2 (19:39→19:40)
[2016-10-02] MEDS ORDERED: MIDAZOLAM 2 MG/2 ML VIAL IVP ONE (19:46)
[2016-10-02] MEDS: fentaNYL (PF) 50 MCG/ML 2 ML AMP IV ONE ×2 (19:47→19:53)
[2016-10-02 20:37] LABS: Glucose,Whole Blood 120 mg/dL (75-99)
[2016-10-02 22:17] LABS: Glucose,CSF 69 mg/dL (40-70)
[2016-10-02 22:20] LABS: Appearance,CSF Clear
--- NOTE | 2016-10-02 22:27 | P.CONS ---
History of Present Illness - Reason for Consult Consult date: 10/02/16 - History of Present Illness This is the Initial consultation visit for this 35 years old female who started complaining of numbness and tingling sensation radiating from the umbilical area towards the lower extremity and radiated towards the feet bilaterally, she denies any initiating event, and she reported that these symptoms started while she was sitting in the restroom , she denies any fever or night sweats, she denies any weakness or pain in the lower extremity, she denies any motor deficit, she denies any history of heavy lifting no history of accident,, she denies any bowel or bladder incontinence, her main problem is numbness radiating from the waist down to the lower extremities, otherwise no other symptoms, patient hasn't thoracic and lumbar MRI and thoracic MRI showed T6 7 and T5 6 central disc bulging, and the lumbar MRI showed lumbar disc bulging at L3 4 level Past Medical History Past Medical History: Diabetes Mellitus, GERD/Reflux, Liver Disease, Sleep Apnea /CPAP/BIPAP, Thyroid Disorder Additional Past Medical History / Comment(s): Uses CPAP.Hx Sarcoidosis with "swollen lymphnodes to lungs" & causes swelling to legs, reports minimal symptoms. History of Any Multi-Drug Resistant Organisms: None Reported Past Surgical History: Cholecystectomy, Tonsillectomy, Tubal Ligation Past Anesthesia/Blood Transfusion Reactions: No Reported Reaction Past Psychological History: No Psychological Hx Reported Smoking Status: Never smoker Past Alcohol Use History: None Reported Past Drug Use History: None Reported - Past Family History Mother Family Medical History: No Reported History Medications and Allergies Home Medications Medication Instructions Recorded Confirmed Type Levothyroxine Sodium [Synthroid] 100 mcg PO QAM 08/24/16 09/30/16 History Levothyroxine Sodium [Synthroid] 125 mcg PO QAM 08/24/16 09/30/16 History Pantoprazole Sodium [Protonix] 40 mg PO QAM 08/24/16 09/30/16 History metFORMIN HCL ER [Glucophage Xr] 500 mg PO PC-[id number] 08/24/16 09/30/16 History L.acidoph,Paracasei, B.lactis 1 cap PO DAILY 09/30/16 09/30/16 History [Probiotic] Multivitamins, Thera [Multivitamin] 1 tab PO DAILY 09/30/16 09/30/16 History Sucralfate [Carafate] 1 gm PO BID 09/30/16 09/30/16 History Vitamin B Complex Oral Drops 7 - 8 drop SL DAILY 09/30/16 09/30/16 History Allergies Allergy/AdvReac Type Severity Reaction Status Date / Time No Known Allergies Allergy Verified 09/30/16 17:50 Physical Exam Vitals: Vital Signs Temp Pulse Pulse Resp BP Pulse Ox 10/02/16 20:22 96.9 F L 68 20 101/61 95 10/02/16 20:05 77 16 147/88 95 Intake and Output 10/02/16 10/02/16 10/02/16 06:59 14:59 22:59 Intake Total 150 Balance 150 Intake: IV 150 Social history : not smoker , NO ETOH , NO Illegal drugs use . Review of Systems : 1- Constitutional : no chills , no fever , no night sweats , 2- Ears : no ear discharge , no change in hearing 3-Nose, Mouth ,Throat ; no bleeding gums, no sore throat , no epistaxis , 4-Cardiovascular : Denies chest pain, , no orthopnea , no palpitation 5-Respiratory : Denies cough , no dyspnea , no hemoptysis 6-Gastrointestinal :, no change in bowel habits , no coffee- ground emesis . 7-Genitourinary : No hematuria , no discharge , no incontinence, 8-Musculoskeletal : No gait dysfunction , report low back pain , 9- Neurological : Numbness radiated from the umbilical area to the lower extremity bilaterally more prominent on the right side 10-Psychatric , no suicidal ideation no hallucination 11- Endocrine : no cold intolerence , no polyuria , no polydypsia , 12-Hematologic : no easy bleeding , no easy brusing , 13-Allergic / immunology : no angioedema , no wheezing ,no allergic rhinitis 14-Integumentary : no brttle nails , no change hair / nails , no foot/leg ulcers . Physical Examinations : 1-Constitutional : Cooperative , not in acute distress . 2-HEENT : nech ; supple , no Lymphadenopathy , no Thyromegaly , :eyes , no icterus, no photophobia . ENT : , normal oropharynx , no Thrush 3- Respiratory : Chest clear to auscultations Bilaterally , no wheezing . 4- Cardiovascular : regular rate and rhythem , S1 , S2 , no S3 , no S4. 5- Gastrointestinal: abdomen soft no tenderness , no organomegally . 6- Genitourinary : Defferred . 7-Integumentary : No cellulitis , no ulcers , normal skin turgor , no cyanotic . 8- neurologic : Cranial nerve II to XII intact , no focal neurological deffecit 9-psychatric : alert , oriented X 3 , appropriate affect , intact judgment and insight . 10-Lymphatic : no Lymphadenopathy. 11- musculoskeltal: normal gait , exams of the cervical spine = motor stregnth in the deltoid and biceps, normal right side , normal Left side exams of the Lumber spine = moter stegnth lower extremities , thigh and legs 5/5 Right side , 5/5 Left side deep tendon reflexes : normal Knee Jerk , normal ankle Jerk Negative lumber facet Loading Test Range of motion of the lumbar spine Flexion 60 degrees, extension 30 degrees strait leg raising test negative bilaterally Fabere test negative bilaterally. Paresthesia extending from the umbilical area towards the lower extremity bilaterally more on the right side Involving the whole lower extremity bilaterally Results CBC & Chem 7: 10/02/16 06:37 10/02/16 06:37 Labs: Abnormal Lab Results - Last 24 Hours (Table) 10/02/16 10/02/16 Range/Units 16:43 20:36 POC Glucose (mg/dL) 121 H 120 H (75-99) mg/dL Comments: MRI of the lumbar spine= large bulging disc at L3 4 MRI of the thoracic spine T6 7 and T5 6 central disc bulging Assessment and Plan Plan: Assessment and plan= acute onset paresthesia involving the lower abdominal area and lower extremity bilaterally, and his symptoms cannot be explained by the MRI findings of the thoracic and lumbar spine,, patient had normal motor strength and no pain in the lower extremity,, and hold neurological examination was negative except paresthesia, angry with Dr. Pastrana that the patient,s need to have MRI of the cervical spine and MRI of the brain,, and she needs diagnostic lumbar puncture, and she is not candidate for interventional pain management Time with Patient: Less than 30
--- NOTE | 2016-10-02 22:28 | P.PCN ---
Date of Procedure: 10/02/16 Procedure(s) Performed: Procedure=1-lumbar puncture . Preoperative diagnoses= multiple sclerosis. Postoperative diagnosis= multiple sclerosis. Anesthesia= IV sedation with Versed and fentanyl and local lidocaine infiltration 1% 2 mL for skin and subcu infiltration. Condition= stable. Complications=none. Indication for the procedure= patient with a history of symptoms suggestive of multiple sclerosis and she was referred to have a lumbar puncture for diagnostic study procedure risk and benefits and alternatives discussed with the patient and she agreed with the preceding, Description of the procedure= patient in the procedure room sitting position and monitors applied, the back prepped with chlorhexidine 3, sterile technique , local infiltration of the skin and subcu interstitial with lidocaine 1% 2 mL, then 22-gauge 5 inches , quickie Needle advanced slowly at L4 5 interlaminar space, the cerebrospinal fluid was clear, and no heme no paresthesia, a total of 10 mL of clear cerebrospinal fluid collected in 4 different tubes, the needle removed, Band-Aid applied , patient tolerated the procedure well without any complications, and further management as per her neurologist
[2016-10-02 22:29] LABS: Diff, Total Cells Cnt, CSF 50; Polynuclear WBC,CSF 14 %
[2016-10-03] MEDS: LEVOTHYROXINE 125 MCG TAB PO SCH (05:34)
[2016-10-03] MEDS: LEVOTHYROXINE 100 MCG TAB PO SCH (05:35)
[2016-10-03 06:56] LABS: Glucose,Whole Blood 99 mg/dL (75-99)
[2016-10-03] MEDS: INSULIN LISPRO (humaLOG) 300 UNIT/3 ML VIAL SQ SCH ×2 (07:07→11:32)
[2016-10-03 07:32] LABS: Basophils % (A) 0 %; CH 26.4; CHCM 31.1; Eosinophils # (A) 0.2 k/uL (0-0.7); Eosinophils % (A) 3 %; HCT 42.7 % (34.0-46.0); HGB 13.4 gm/dL (11.4-16.0); Hypochromasia Moderate; Luc % (Auto) 3; Lymphocytes % (A) 28 %; MCH 26.7 pg (25.0-35.0); MCHC 31.4 g/dL (31.0-37.0); MCV 85.1 fL (80.0-100.0); Mean Platelet Volume 7.2; Monocytes # (A) 0.4 k/uL (0-1.0); Monocytes % (A) 5 %; Neutrophils # (A) 4.3 k/uL (1.3-7.7); Neutrophils % (A) 62 %; RBC 5.02 m/uL (3.80-5.40); WBC (Perox) 7.24
[2016-10-03 07:56] LABS: Anion Gap 9 mmol/L; Blood Urea Nitrogen 12 mg/dL (7-17); Calcium 9.1 mg/dL (8.4-10.2); Carbon Dioxide 27 mmol/L (22-30); Chloride 105 mmol/L (98-107); Glucose 98 mg/dL (74-99); Non-African American GFR(MDRD) >60 (>60 ml/min/1.73 sqM); Potassium 4.3 mmol/L (3.5-5.1); Sodium 141 mmol/L (137-145)
[2016-10-03] MEDS ORDERED: ACETAMINOPHEN TAB 325 MG TAB PO PRN (08:43)
[2016-10-03] MEDS: metFORMIN 500 MG TAB PO SCH (08:55)
[2016-10-03] MEDS: LACTOBACILLUS ACIDOPH & BULGAR 1 EACH PACKET PO SCH (08:56)
[2016-10-03] MEDS: CARAFATE 1 GM/10 ML PO SCH (08:56)
[2016-10-03] MEDS: MULTIVITAMINS, THERA 1 EACH TAB PO SCH (08:57)
[2016-10-03] MEDS: PANTOPRAZOLE 40 MG TABLET PO SCH (08:57)
[2016-10-03 11:35] LABS: Glucose,Whole Blood 119 mg/dL (75-99)
[2016-10-03 14:10] VITALS: BP 111/71; PULSE 62; RESP 16; TEMP 98
--- NOTE | 2016-10-03 14:48 | P.PN ---
Progress Note - Text Patient is a very pleasant 35-year-old female who is seen and examined at the bedside for follow-up evaluation for numbness and tingling extending from the mid abdomen down the bilateral lower extremities. Since being seen examined yesterday, she states the numbness and tingling has worsened in the right lower extremity. She continues to follow with Dr. Pastrana in neurology and with Dr. Molina and medicine. She underwent an MRI of the cervical spine and brain yesterday. She also recently underwent a lumbar puncture for further evaluation from possible multiple sclerosis. Her symptoms have been persistent since being seen him yesterday. She has numbness and tingling with decreased sensation from the mid abdomen radiating down the thighs and down the bilateral lower extremities to the ankles. She has had some numbness to the right foot as well. She states her symptoms are symmetrical with some increased numbness on the right below the knee. She denies any lower extremity weakness bilaterally. She states she has been able to continue participating regular activities of daily living without significant difficulty. She states over this past weekend she was able to dance and was also able to participate in [place] without significant difficulty. She's been eating and voiding without difficulty. She denies loss of bowel or bladder. She continues to be followed by Dr. Pastrana in neurology. Patient is not currently experiencing significant low back pain. Patient does have a history of sarcoidosis. She states she is also been having some abdominal discomfort since June 2016. She states she had an endoscopy performed which showed gastritis. She states she has been adjusting her diet accordingly try to help alleviate her gastritis. She denies having a colonoscopy performed. Physical exam: Patient is awake, alert, and oriented 3 Vital signs stable Good chest excursion with deep inspiration and expiration Abdomen soft nontender Examination of lumbar spine reveals skin is intact with no abrasions, lacerations, or bruises; no erythema, purulence or signs of infection Patient has reduced sensation from the mid abdomen down the bilateral lower extremities with palpation Dorsiflexion, plantarflexion, and extensor hallucis longus positive sustained bilaterally Lower extremity strength 5/5 bilaterally No lower extremity hyperreflexia bilaterally Straight leg test negative bilateral lower extremities Negative Lasegue's test bilaterally No signs or symptoms of DVT; no calf pain No pain with internal and external rotation of the hips bilaterally Neurovascularly intact Pertinent studies: MRI of the brain and cervical spine: Solitary 4 mm right focus of the left posterior periarticular white matter which is nonspecific but in area of active demyelination is not excluded; incidental partially empty sella; mild chronic ethmoid and maxillary sinus disease; multilevel cervical degenerative disc disease; C4-5 and C5-6 posterior disc bulging and facet arthropathy; no evidence of significant spinal canal stenosis or neural foraminal stenosis; no discrete some cord signal abnormality or an cord enhancement MRI of the thoracic spine with and without contrast: T1-2 mild right paracentral endplate spurring with mild anterior thecal sac compression; T5-6 central and right paracentral minimal endplate bulge with anterior thecal sac contact; T6-7 left paracentral thecal sac compression from disc material; no evidence of significant canal stenosis or foraminal stenosis throughout the thoracic spine; overall alignment of the thoracic spine appears to be adequately maintained; intravertebral disc heights appear to be adequately maintained; no evidence of vertebral body compression fracture; no suspicious changes for transverse myelitis or multiple sclerosis MRI of the lumbar spine with and without contrast: L3-4 large central disc herniation with moderate to prominent central thecal sac compression with no central canal stenosis present along with facet hypertrophy; overall alignment of the lumbar spine appears to be adequately maintained; no evidence of vertebral body compression fracture; no changes suspicious for transverse myelitis or multiple sclerosis CT of the thoracic spine and lumbar spine: Multilevel degenerative changes in the thoracolumbar spine most prominent L3-4; consider nonemergent MRI correlation Assessment: Paresthesia of the mid abdomen distally down the bilateral lower extremities L3-4 central disc herniation without evidence of central canal stenosis Sarcoidosis Plan: 1. I have reviewed the patient's imaging, most specifically her MRIs of the thoracic and lumbar spines, and have discussed these in detail with the patient. Dr. Cipriano Lang has reviewed these imagings as well. Patient has also been discussed in detail with Dr. Molina. Dr. Cipriano Lang does agree she does have evidence of a disc herniation at L3-4 without evidence of central canal stenosis. Her symptoms are very generalized and extended from the mid abdomen down the bilateral lower extremities. It does not appear that this disc herniation at L3-4 would be the significant cause of her symptoms. Dr. Cipriano Lang does not feel the L3-4 herniation to be the cause of her symptoms and recommends continuing with conservative treatment. We are not currently planning any acute surgical intervention regards to the patient's lumbar spine as it does not appear there are surgical indications in which surgery would provide significant relief of her symptoms. This has been discussed in detail with the patient and the patient also feels good plan of care. She should continue with medicine and further neurology workup. We discussed she may continue to ambulate as tolerated and participate in activities as tolerated. At this time, she may follow-up on an as-needed basis. 2. Dr. Pastrana in neurology to continue following the patient 3. Medicine to continue following patient 4. Following discharge, patient may follow-up with Feng Roy PA-C or Dr. Cipriano Lang at [facility] on an as-needed basis 5. I have discussed this patient in detail with Dr. Cipriano Lang and he agrees with this plan
--- NOTE | 2016-10-04 07:53 | DS ---
DATE OF ADMISSION: 10/02/2016 DATE OF DISCHARGE: 10/03/2016 FINAL DIAGNOSES: 1. Numbness of both lower limbs, rule out transverse myelitis. 2. Multiple sclerosis. 3. Severe degenerative joint disease. 4. Increased random blood sugar with diabetes mellitus type 2. 5. Increased CRP. 6. Gastroesophageal reflux disease. 7. History of liver disease. 8. History of sleep apnea, CPAP. 9. History of sarcoidosis. 10. Hypothyroidism. 11. History of mediastinal lymphadenopathy and biopsy. 12. History of cholecystectomy. 13. History of tubal ligation. 14. History of obesity with a body mass index of 43.9. 15. FULL CODE. DISCHARGE DISPOSITION: The patient will be discharged in a stable condition with guarded prognosis. Discharge cleared by multiple consultants including Neurology. HISTORY OF PRESENT ILLNESS: This 35-year-old woman with a past medical history of multiple medical problems was admitted with numbness of both lower limbs up to the umbilical area. The patient had extensive evaluations. The MRI showed multiple disc herniations in the cervical and lumbar area recommending close followup with Orthopedic Surgery. Otherwise, Pain Management also saw the patient. The MRI of the brain was also noted which showed solitary 4 mm bright focus and empty sella and chronic ethmoid and maxillary sinusitis. Dr. Pastrana saw the patient. A lumbar puncture was also performed. The final reports are pending at this time. The level was normal and patient improved significantly. On exam, vitals are stable. CARDIOVASCULAR SYSTEM: S1, S2, muffled. ABDOMEN: Soft. NERVOUS SYSTEM: No focal deficits. DISCHARGE ADVICE: 1. Diet is cardiac. 2. Activity limited until followup. 3. Follow up with Dr. Bland in 2 to 3 days. 4. Follow up with Dr. Dr. Pastrana as recommended. 5. Follow up with Dr. Lang as recommended. The medications are: 1. Vitamin B daily. 2. Tylenol 650 q.6 p.r.n. 3. Probiotic 1 capsule daily. 4. Synthroid 100 mcg p.o. q.a.m. and 125 mcg q.a.m. with total 225. 5. Multivitamins 1 p.o. daily. 6. Protonix 40 mg q.a.m. 7. Carafate 1 gm b.i.d. 8. Glucophage 500 mg b.i.d. 9. Accu-Cheks a.c. and at bedtime. 10. continued followup. MTDD
[2016-10-05 20:26] LABS: Lyme Specimen Source Not Provided
[2016-10-08 14:54] LABS: IgG Synthesis Rate 1.35 mg/day (0.00 - 3.00)
== END 2016-10-03 16:07 | disposition home or self-care (01) | DRG 98 ==
LOC: EC 16:25 → 3SUR 19:48 → OBSVTOIN 10-02 15:34
PROVIDERS: ADMIT Hospitalist; ATTEND Hospitalist
PROC: 009U3ZX Drainage of Spinal Canal, Percutaneous Approach, Diagnostic (ICD-10-PCS; principal; 2016-10-02 19:23)
DX: G37.3 Acute transverse myelitis in demyelinating disease of central nervous system (principal); Z68.41 Body mass index [BMI] 40.0-44.9, adult; G35 Multiple sclerosis; R20.2 Paresthesia of skin; E66.9 Obesity, unspecified; D86.9 Sarcoidosis, unspecified; E11.9 Type 2 diabetes mellitus without complications; K21.9 Gastro-esophageal reflux disease without esophagitis; E03.9 Hypothyroidism, unspecified; M51.26 Other intervertebral disc displacement, lumbar region; G47.30 Sleep apnea, unspecified; K29.70 Gastritis, unspecified, without bleeding; K76.9 Liver disease, unspecified; M19.90 Unspecified osteoarthritis, unspecified site; Z79.84 Long term (current) use of oral hypoglycemic drugs; Z79.899 Other long term (current) drug therapy
CPT/HCPCS: 36415; 62270; 70553; 71020; 72128; 72131; 72156; 72157; 72158; 80048; 80053; 81001; 82040; 82042; 82164; 82784; 82945; 83036; 83916; 84157; 85025; 85652; 86140; 87070; 87086; 87205; 87476; 89050; 93306; 99285